=== PATIENT | male | born 1970 | race Caucasian/White ===

== ENCOUNTER 2020-12-12 23:17 | Inpatient (IN) | payer MEDICARE, OTHER ==
[2020-12-12 23:35] VITALS: BP 104/80; PULSE 94; RESP 16
[2020-12-13] MEDS ORDERED: ONDANSETRON 4 MG/2 ML VIAL IVP PRN (00:24)
[2020-12-13] MEDS ORDERED: MORPHINE SULFATE 4 MG/ML SYRINGE IV PRN (00:24)
[2020-12-13] MEDS ORDERED: NALOXONE 0.4 MG/ML 1 ML VIAL IV PRN (00:24)
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
[2020-12-13] MEDS ORDERED: SODIUM CHLORIDE 0.9% 1,000 ML IV SCH (00:30)
[2020-12-13] MEDS ORDERED: AMPICILLIN-SULBACTAM 3 GM in SODIUM CHLORIDE 0.9% 100 ML IVPB STA (01:23)
[2020-12-13 04:52] VITALS: TEMP 98.9
[2020-12-13] MEDS ORDERED: AMPICILLIN-SULBACTAM 3 GM in SODIUM CHLORIDE 0.9% 100 ML IVPB SCH (08:00)
== END 2020-12-13 04:54 | disposition short-term general hospital (02) | DRG 388 ==
LOC: EC 23:17 → 5NMEDONC 12-13 00:25
PROVIDERS: ADMIT Internal Medicine; ATTEND Internal Medicine
DX: K56.2 Volvulus (principal); G82.50 Quadriplegia, unspecified; F42.9 Obsessive-compulsive disorder, unspecified; F43.10 Post-traumatic stress disorder, unspecified; Z87.891 Personal history of nicotine dependence; Z93.59 Other cystostomy status; Z20.822 Contact with and (suspected) exposure to COVID-19
CPT/HCPCS: 87635; 99285